=== PATIENT | male | born 1985 | race Caucasian/White ===

== ENCOUNTER 2023-05-06 14:19 | Emergency (ER) | payer OTHER, SELFPAY ==
--- NOTE | ~2023-05-06 | XR_ITS ---
EXAMINATION: XR CHEST CLINICAL INFORMATION: Pain COMPARISON: None available. TECHNIQUE: Frontal view of the chest was obtained. FINDINGS: No significant abnormality is noted involving the heart, lungs, mediastinum, bony thorax or soft tissues. XR/XR chest 1V IMPRESSION: Unremarkable chest exam
[2023-05-06 14:29] VITALS: BP 150/80; PULSE 110; O2SAT 100
[2023-05-06 14:34] VITALS: BP 143/90; PULSE 71; RESP 18; TEMP 36.6; O2SAT 100; BMI 22.2
--- NOTE | 2023-05-06 14:47 | ECG_ITS ---
Test Reason : CP Blood Pressure : / mmHG Vent. Rate : 080 BPM Atrial Rate : 080 BPM P-R Int : 132 ms QRS Dur : 094 ms QT Int : 362 ms P-R-T Axes : 068 071 043 degrees QTc Int : 417 ms Normal sinus rhythm with sinus arrhythmia Normal ECG No previous ECGs available Referred By: Leslei Hassan Electronically Signed By:JUJU BEGUM MD
--- NOTE | 2023-05-06 14:49 | ED_ITS ---
HPI - Chest Pain General Chief Complaint: Chest Pain Stated Complaint: Chest Pressure Time Seen by Provider: 05/06/23 14:29 Source: patient Mode of arrival: EMS Limitations: no limitations History of Present Illness HPI narrative: 37 yo non binary patient PMH of ADHD and currently on estrogen HRT/spironolactone here with c/o having malaise, fatigue, cough since yesterday but this AM felt much worse with increased dizziness, fatigue and central chest pain, tingling in extremities and felt like they would faint. Given aspirin and nitro by EMS MANAGER RISK feels slightly better. No known ACS or VTE hx. Their family and partner have JAI SHABAZZ complaint: chest pain Pertinent past history: other (no hx of CAD or VTE) Onset (ago): day(s) (8am this morning) Timing of current episode: other (improved) Prior episodes: No Onset: during rest Pain location: substernal Pain radiation: none Severity: moderate Quality: aching Relieving factors: nothing Exacerbating factors: exertion Context: recent illness Associated symptoms: nausea, dyspnea, cough and other (malaise, fatigue, dizziness) Treatment prior to arrival: aspirin and nitroglycerin Related Data Previous Rx's Medication Instructions Recorded nirmatrelvir 300 mg (150 mg See Rx Instructions PO .COMPLEX 05/06/23 x2)-ritonavir 100 mg tablet,dose #30 ea pack (Paxlovid) Allergies Allergy/AdvReac Type Severity Reaction Status Date / Time No Known Allergies Allergy Verified 05/06/23 14:47 Review of Systems 2 Review of Systems: Constitutional : No Fever, pos Chills, pos Fatigue ENT/Mouth : No sore throat, No Rhinorrhea Eyes: No Eye Pain, No Swelling, No Redness Cardiovascular : pos Chest Pain, No SOB, No Dyspnea on Exertion Respiratory : No Cough, No Sputum Gastrointestinal : pos Nausea, No Vomiting, No Diarrhea, No abdominal Pain Genitourinary : No Dysuria, No Urinary Frequency, No Hematuria, Musculoskeletal : No joint pain, No Myalgias, No Joint Swelling Skin : No Skin Lesions, No rash Neuro : No Weakness, No Numbness, pos Dizziness, no Headache Psych : No Anxiety/Panic, No Depression All other systems reviewed and are negative [facility] Past Medical History Attestation statement: The following information was validated with the patient. Medical History ADHD Transgender person on hormone therapy Social History Social History (Updated 05/06/23 @ 14:50 by Leslie Hassan DO) Patient Tobacco Use Status: Never used Tobacco Smoked in Last 30 Days: No Use of substances other than those prescribed or required for medical reasons: No Advance Directives: No Advance Directives Information Provided: Yes Physical Exam 2 Vital Signs: Vital Signs: Last Vital Signs Temp 97.8 F 05/06/23 14:34 Pulse 85 05/06/23 15:47 Resp 14 05/06/23 15:47 BP 116/76 05/06/23 15:47 Pulse Ox 100 05/06/23 15:47 O2 Del Method Room Air 05/06/23 15:47 BMI result Body Mass Index 22.2 Appearance: Alert. Oriented X3. No acute distress. Anxious Eyes: Pupils equal, round and reactive to light. ENT: Pharynx normal. Neck: Normal inspection. Neck supple. CVS: tachycardic heart rate and rhythm. Pulses normal. Respiratory: No respiratory distress. Breath sounds normal. Abdomen: Soft and nontender. Skin: Skin warm and dry. Normal skin color. Normal skin turgor. Extremities: No lower extremity edema. No calf ttp Neuro: Oriented X 3. No motor deficit. No sensory deficit. Medications Administered Discontinued Medications Generic Name Dose Route Start Last Admin Trade Name Mario PRN Reason Stop Dose Admin Acetaminophen 975 mg 05/06/23 14:47 05/06/23 15:20 Acetaminophen 325 Mg Tablet PO 05/06/23 14:48 975 mg ONCE ONE Administration Sodium Chloride 1,000 mls @ 999 mls/hr 05/06/23 15:00 05/06/23 15:20 Ns IV 05/06/23 16:00 999 mls/hr .Q1H1M KALLI Administration Ondansetron HCl 4 mg 05/06/23 14:47 05/06/23 15:21 Ondansetron Hcl 4 Mg/2 Ml Vial IVPUSH 05/06/23 14:48 4 mg ONCE ONE Administration Medical Decision Making Medical Decision Making MDM Narrative: 37 yo non binary patient PMH of ADHD and currently on estrogen HRT/spironolactone here with chest tightness, tingling, fatigue, malaise and feeling weak after COVID exposure they are vaccinated and boostered. No tests done at home. At this time they have no known heart disease and no prior VTE but HRT does increase VTE risk during possible COVID. Pain over 6 hours at this time will obtain labs, CXR, EKG, troponin x 1, ddimer - hydrate, tylenol and zofran. Differential Diagnosis Differential Diagnoses: The differential diagnosis associated with the presentation includes COVID, VTE, pericarditis, myocarditis, viral syndrome, anxiety Admission/Observation Consideration of admission/observation: Escalation of care including admission/observation considered no hypoxia, EKG and trop flat Lab Data [facility] Lab Attestation statement: I reviewed the patient's lab results. 05/06/23 15:00 05/06/23 15:00 Labs: Lab Results 05/06/23 05/06/23 05/06/23 Range/Units 14:57 14:58 15:00 WBC 6.8 (4.8-10.8) X10*3/uL RBC 5.47 (4.60-5.80) X10*6/uL Hgb 15.6 (14.0-18.0) g/dl Hct 43.7 (42.0-52.0) % MCV 79.9 L (80.0-98.0) fL MCH 28.5 (27.0-33.0) pg MCHC 35.7 (31.0-36.0) g/dl RDW 12.2 (11.0-16.0) % Plt Count 212 (160-400) X10*3/uL MPV 9.9 (9.4-12.4) fL Immature Gran % (Auto) 0.4 (0.0-0.4) % Neut % (Auto) 77.3 H (45-73) % Lymph % (Auto) 11.9 L (20-40) % [place] % (Auto) 9.0 (2-11) % Eos % (Auto) 0.4 (0-4) % Baso % (Auto) 1.0 (0-2) % Lymph # (Auto) 0.8 L (1.2-4.9) X10*3/uL [place] # (Auto) 0.6 (0.1-1.2) X10*3/uL Eos # (Auto) 0.0 (0.0-0.4) X10*3/uL Baso # (Auto) 0.1 (0.0-0.2) X10*3/uL Abs Immat Gran (auto) 0.03 (0.00-0.03) X10*3/uL Absolute Neuts (auto) 5.2 (2.0-8.3) x10*3/uL Absolute Nucleated RBC 0.000 (0.0-0.012) X10*3/uL Nucleated RBC % (auto) 0.0 (0.0-0.2) /100WBC Sodium 133 L (135-145) mmol/L Potassium 4.5 (3.3-5.1) mmol/L Chloride 99 (96-108) mmol/L Carbon Dioxide 23 (22-29) mmol/L Anion Gap 16 (12-20) BUN 9 (9-16) mg/dL Creatinine 0.78 (0.5-1.4) mg/dL Estim Creat Clear Calc 129.8 Estimated GFR > 60 Random Glucose 113 (60-115) mg/dL Calcium 9.2 (8.4-10.2) mg/dL Magnesium 1.6 (1.6-2.6) mg/dL Total Bilirubin 2.1 H (0.0-1.0) mg/dL Direct Bilirubin 0.6 H (0.0-0.5) mg/dL AST 28 (5-37) U/L ALT 44 H (0-40) U/L Alkaline Phosphatase 75 (39-117) U/L Troponin I High Sens < 2.7 (<3.5-35.0) ng/L Total Protein 6.3 L (6.5-8.0) g/dL Albumin 4.1 (3.5-5.0) g/dL Urine Color Yellow Urine Appearance Clear Urine pH 7.5 (5.0-9.0) Ur Specific [place] <= 1.005 (1.005-1.025) Urine Protein Negative (Neg-Trace) mg/dL Urine Glucose (UA) Negative (Negative) mg/dL Urine Ketones Trace (Negative) mg/dL Urine Blood Negative (Negative) Urine Nitrite Negative (Negative) Ur Leukocyte Esterase Negative (Negative) COVID-19 (BIANCA) Positive A (Negative) COVID-19 Clin Com See Note Independent Interpretation I performed an independent interpretation of an: EKG and Plain X-Ray (normal ) Interpretation: Rate: 80 Rhythm: NSR [place]: normal Normal P waves. Normal FAY. Normal QRS complex. ST T wave : no CHLOE, nonspecific ST T wave changes V1-V2 qTC: 417 prior studies: no acute ischemia The study has been interpreted contemporaneously by me. . Radiology Impression Discussion of test interpretation with radiology: I have reviewed the radiologist's reading. Independent Historian Clinical information obtained from an independent historian. History obtained from or confirmed by: EMS Prescription Management I considered prescription management with: Antiviral Discharge Plan Discharge Clinical Impression: COVID-19, Atypical chest pain Patient Disposition: Home, Self-Care Instructions: Chest Pain (ED), COVID-19 (Coronavirus Disease 2019) (ED) Additional Instructions: your EKG and heart tests were normal. you were slightly dehydrated. you had a mininal bump in your liver enzymes this is likely due to COVID - very minimal and expected. I would repeat with your doctor in 5 days. return if you have worsening chest pain, your breathing becomes so labored you are confused hallucinating or you cannot walk to your own bathroom. wear a mask and protect others. Prescriptions: New Paxlovid 300 mg (150 mg x 2)-100 mg tablets,dose pack See Rx Instructions .ROUTE .COMPLEX Qty: 30 0RF Rx Instructions: take TWO 150 mg tablets of nirmatrelvir with ONE 100 mg tablet of ritonavir twice daily for 5 days Stand Alone Forms: Work/School Release
[2023-05-06 15:06] LABS: MANUAL DIFF FLAG NO
[2023-05-06 15:07] LABS: Basophils Absolute Auto 0.1 X10*3/uL (0.0-0.2); Eosinophils Percent Auto 0.4 % (0-4); Hematocrit 43.7 % (42.0-52.0); Hemoglobin 15.6 g/dl (14.0-18.0); Imm Gran Abs Auto 0.03 X10*3/uL (0.00-0.03); Imm Gran Pct Auto 0.4 % (0.0-0.4); Lymphocytes Absolute Auto 0.8 X10*3/uL (1.2-4.9); Lymphocytes Percent Auto 11.9 % (20-40); Mean Corpuscular HGB Conc 35.7 g/dl (31.0-36.0); Mean Corpuscular Hemoglobin 28.5 pg (27.0-33.0); Mean Corpuscular Volume 79.9 fL (80.0-98.0); Mean Platelet Volume 9.9 fL (9.4-12.4); Monocytes Absolute Auto 0.6 X10*3/uL (0.1-1.2); Neutrophils Absolute Auto 5.2 x10*3/uL (2.0-8.3); Neutrophils Percent Auto 77.3 % (45-73); Platelet Count 212 X10*3/uL (160-400); Red Blood Count 5.47 X10*6/uL (4.60-5.80); Red Cell Distribution Width 12.2 % (11.0-16.0); White Blood Count 6.8 X10*3/uL (4.8-10.8)
[2023-05-06 15:09] LABS: Appearance Urine Clear; Color Urine Yellow; Glucose Urine UA Negative (Negative); Leukocyte Esterase Urine Negative (Negative); Nitrite Urine Negative (Negative); PH 7.5 (5.0-9.0); Specific Gravity - Urine <= 1.005 (1.005-1.025); Urine Blood Negative (Negative); Urine Ketones Trace mg/dL (Negative); Urine Protein Negative (Neg-Trace)
[2023-05-06 15:18] LABS: COVID-19 Test Positive (Negative); IDNOW Serial# 152EDE1D
[2023-05-06] MEDS: 0.9 % Sodium Chloride 1,000 ML 999 ML IV (15:20)
[2023-05-06] MEDS: Acetaminophen 325 MG TABLET 975 MG PO (15:20)
[2023-05-06] MEDS: ondansetron HCL 4 MG/2 ML VIAL IVPUSH (15:21)
[2023-05-06 15:22] LABS: Alanine Aminotransferase 44 U/L (0-40); Albumin Level 4.1 g/dL (3.5-5.0); Alkaline Phosphatase 75 U/L (39-117); Anion Gap 16 (12-20); Aspartate Amino Transferase 28 U/L (5-37); Bilirubin Direct 0.6 mg/dL (0.0-0.5); Bilirubin Total 2.1 mg/dL (0.0-1.0); Blood Urea Nitrogen 9 mg/dL (9-16); Calcium 9.2 mg/dL (8.4-10.2); Carbon Dioxide 23 mmol/L (22-29); Chloride 99 mmol/L (96-108); Creatinine Clr Calc Pharmacy 129.8; Estimated Glomerular Filt Rate > 60; Glucose Random 113 mg/dL (60-115); Magnesium 1.6 mg/dL (1.6-2.6); Potassium 4.5 mmol/L (3.3-5.1); Sodium 133 mmol/L (135-145); Total Protein 6.3 g/dL (6.5-8.0)
[2023-05-06 15:32] LABS: Troponin-I High Sensitivity < 2.7 ng/L (<3.5-35.0)
[2023-05-06 15:47] VITALS: BP 116/76; PULSE 85; RESP 14; O2SAT 100
[2023-05-06 17:04] LABS: D Dimer High Sensitivity < 150 NG/ML
== END 2023-05-06 18:27 | disposition home or self-care (01) ==
PROVIDERS: Emergency Medicine; Emergency Provider Emergency Medicine; PCP Pediatrics
DX: U07.1 COVID-19 (principal); R07.9 Chest pain, unspecified; R05.9 Cough, unspecified; R42 Dizziness and giddiness; R53.83 Other fatigue; R20.2 Paresthesia of skin
CPT/HCPCS: 71045; 80048; 80076; 81003; 83735; 84484; 85025; 85379; 87635; 93005; 96361; 96374; 99284; 99285; J2405

== ENCOUNTER → 2023-05-06 14:47 | Outpatient (BNV) | payer OTHER, SELFPAY | PROVIDERS: Emergency Provider Emergency Medicine; PCP Pediatrics; Visit Provider Internal Medicine Cardiovascular Disease | DX: I49.9 Cardiac arrhythmia, unspecified (principal) | CPT/HCPCS: 93010 ==